=== PATIENT | female | born 1990 | race Two or more races ===

== ENCOUNTER 2017-12-03 12:58 | Outpatient (CLI) | payer OTHER | END 2017-12-03 13:12 | disposition home or self-care (01) | LOC: SONOGRAMA 12:58 → MAMO-SONO 13:15 | DX: N83.01 Follicular cyst of right ovary (principal); N83.02 Follicular cyst of left ovary ==

== ENCOUNTER 2023-02-15 08:45 | Outpatient (CLI) | payer OTHER | END 2023-02-15 08:55 | disposition home or self-care (01) | LOC: RX STUDY 08:45 | PROVIDERS: ATTEND Obstetrics & Gynecology | DX: N70.11 Chronic salpingitis (principal) ==